=== PATIENT | male | born 2000 | race Caucasian/White ===

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

== ENCOUNTER 2018-05-03 13:55 | Emergency (ER) | payer BC ==
[2018-05-03 14:00] VITALS: RESP 18; TEMP 98.5
[2018-05-03] MEDS ORDERED: GLUCAGON 1 MG/ML VIAL IVP STA (14:12)
[2018-05-03] MEDS ORDERED: DIAZEPAM 5 MG/ML 2 ML INJ IVP STA (14:12)
[2018-05-03] MEDS ORDERED: METOCLOPRAMIDE 5 MG/ML 2 ML VIAL IVP STA (14:12)
[2018-05-03] MEDS ORDERED: NITROGLYCERIN SL TABS 0.4 MG TAB SUBLINGUAL STA (14:22)
--- NOTE | 2018-05-03 14:50 | ED ---
General Adult HPI <Yehuda Duarte - Last Filed: 05/03/18 16:03> - General Source: patient, RN notes reviewed, old records reviewed Mode of arrival: ambulatory Limitations: no limitations <Zi Avila - Last Filed: 05/03/18 19:27> - General Chief complaint: Skin/Abscess/Foreign Body Stated complaint: Foreign Object in throat - History of Present Illness Initial comments: 17-year-old male patient presents in ED for foreign body in throat. Patient states that approximately one hour ago he was eating piece of steak, felt in get stuck after swallowing. Patient states that he can feel it substernally. Patient able to breathe without difficulty. Patient is in no distress. Patient previously had a piece of meat lodged in his throat approximately 4 years ago, required endoscopy to remove a piece of meat. Patient denies all complaints. Patient denies chest pain, shortness of breath, abdominal pain, nausea vomiting diarrhea. Systemic: Pt denies fatigue, myalgia, fever/chills, rash. Pt denies weakness, night sweats, weight loss. Neuro: Pt denies headache, visual disturbances, syncope or pre-syncope. HEENT: Pt denies ocular discharge or irritation, otalgia, rhinorrhea, pharyngitis or notable lymphadenopathy. Cardiopulmonary: Pt denies chest pain, SOB, heart palpitations, dyspnea on exertion. Abdominal/GI: Pt denies abdominal pain, n/v/d. : Pt denies dysuria, burning w/ urination, frequency/urgency. Denies new onset urinary or bowel incontinence. MSK: Pt denies myalgia, loss of strength or function in extremities. (Zi Avila) - Related Data Home Medications Medication Instructions Recorded Confirmed No Known Home Medications 05/03/18 05/03/18 Allergies Allergy/AdvReac Type Severity Reaction Status Date / Time egg Allergy Anaphylaxis Verified 05/03/18 14:09 Sulfa (Sulfonamide Allergy Rash/Hives Verified 05/03/18 14:09 Antibiotics) Review of Systems ROS Other: All systems not noted in ROS Statement are negative. <Yehuda Duarte - Last Filed: 05/03/18 16:03> ROS Other: All systems not noted in ROS Statement are negative. <Zi Avila - Last Filed: 05/03/18 19:27> ROS Statement: Those systems with pertinent positive or pertinent negative responses have been documented in the HPI. Past Medical History Past Medical History: GERD/Reflux History of Any Multi-Drug Resistant Organisms: None Reported Additional Past Surgical History / Comment(s): endoscopy to remove lodged piece of meat from esophagus Past Psychological History: No Psychological Hx Reported Smoking Status: Never smoker Past Alcohol Use History: None Reported Past Drug Use History: None Reported <Zi Avila - Last Filed: 05/03/18 19:27> General Exam <Yehuda Duarte - Last Filed: 05/03/18 16:03> Limitations: no limitations <Zi Avila - Last Filed: 05/03/18 19:27> - General Exam Comments Initial Comments: Constitutional: NAD, AOX3, Pt has pleasant affect. HEENT: NC/AT, trachea midline, neck supple, no lymphadenopathy. Posterior pharynx non erythematous, without exudates. External ears appear normal, without discharge. Mucous membranes moist. Eyes PERRLA, EOM intact. There is no scleral icterus. No pallor noted. Cardiopulmonary: RRR, no murmurs, rubs or gallops, no JVD noted. Lungs CTAB in anterior and posterior gracia. No peripheral edema. Abdominal exam: Abdomen soft and non-distended. Abdomen non-tender to palpation in all 4 quadrants. Bowel sounds active in LLQ. No hepatosplenomegaly. Neuro: CN II-XII grossly intact. (Zi Avila) Course <Yehuda Duarte - Last Filed: 05/03/18 16:03> <Zi Avila - Last Filed: 05/03/18 19:27> Vital Signs 05/03/18 05/03/18 13:57 16:30 Temperature 98.5 F Pulse Rate 90 86 Respiratory 18 18 Rate Blood Pressure 124/80 122/78 O2 Sat by Pulse 99 100 Oximetry - Reevaluation(s) Reevaluation #1: 05/03/18 16:03 PA supervision: I proceeded [id number] evaluation the patient did discuss the situation with him the patient did eat steak around 1 PM today he's unable pass that he has had a prior history of esophageal obstruction. He did fail the initial attempts at medical therapy in the emergency department. I did discuss the case with Dr. Pryor who will come in and see the patient. (Yehuda Duarte) Medical Decision Making <GeraldYehuda - Last Filed: 05/03/18 16:03> <Zi Avila - Last Filed: 05/03/18 19:27> - Medical Decision Making 17-year-old male patient presents in ED with piece of steak lodged in distal esophagus. Patient states that he swallowed a large piece of steak, felt that it did not "go down all the way". Patient had a similar occurrence approximately 4 years ago, requiring endoscopy to remove a piece of meat. Patient has no other complaints. Patient is not in acute distress, patient is breathing easily. Lungs sounds clear to auscultation in anterior and posterior gracia. Patient is unable to swallow liquids. Initial intervention of Sublingual nitro, glucagon , Valium, Reglan was attempted , was unsuccessful. Patient still unable to pass liquids. GI/Endo was consulted. Patient underwent endoscopy to clear esophagus. Patient awake and alert post procedure. Biopsies were taken. Dr. Pryor conducted endoscopy, patient will be referred to his office in 2 weeks. Patient given prescription for omeprazole. Patient to have clear liquids tonight, proceeded that as tolerated. Patient to follow with PCP in one to days. Patient to return to ED if any new signs symptoms develop including pain in neck, difficulty breathing, chest pain, shortness of breath any other symptoms. Case discussed with Dr. Duarte. (Zi Avila) Disposition <Yehuda Duarte - Last Filed: 05/03/18 16:03> Is patient prescribed a controlled substance at d/c from ED?: No Time of Disposition: 19:27 <Zi Avila - Last Filed: 05/03/18 19:27> Clinical Impression: Esophagus, foreign body Disposition: HOME SELF-CARE Condition: Good Instructions: Esophageal Foreign Body (ED) Additional Instructions: Patient to adhere to previously discussed treatment plan and will take medication(s) as directed. Patient to follow up with PCP in 1-2 days. Patient to return to ED if symptoms do not improve. Referrals: None,Stated [Primary Care Provider] - 1-2 days Obduloi Pryor MD [STAFF PHYSICIAN] - 1-2 days
[2018-05-03] MEDS ORDERED: IV FLUID CONTINUATION 1,000 ML IV ONE (17:19)
--- NOTE | 2018-05-03 17:48 | P.CONS ---
History of Present Illness - Reason for Consult Consult date: 05/03/18 Foreign body Requesting physician: Zi Avila - Chief Complaint Food in food pipe - History of Present Illness The patient is a pleasant 17 yo male with no significant medical history who presents to the hospital after eating steak earlier in the day and getting it stuck in his esophagus. Per the patient he has not had any dysphagia recently . He denies any history of GERD. He did have a prior episode of esophageal food impaction 4 years ago requiring emergent EGD. He reports that at that time he was told that the food got caught in the esophagus as it tapered. He states that he followed up with GI after that in the office. He is not on any current medications. He denies nausea, vomiting or change in bowel habits. His complaints are of the sensation of a foreign body in his esophagus and being unable to tolerate his secretions. The patient does have a history of asthma. Review of Systems REVIEW OF SYSTEMS: CONSTITUTIONAL: Denies any fevers, chills, weight change or fatigue. CARDIOVASCULAR: Denies any chest pain, palpitations high or low blood pressures RESPIRATORY: Denies any shortness of breath, hemoptysis or cough. GENITOURINARY: No dysuria or hematuria. MUSCULOSKELETAL: No weakness reported. SKIN: Denies any new rashes or lesions, jaundice or pallor. PSYCHIATRIC: Denies any depression or anxiety. NEUROLOGY: Denies headache, denies any new focal deficits. EARS/NOSE/THROAT: No recent hearing change, congestion, nasal discharge or sore throat. EYES: No pain in eyes, discharge or change in vision. GASTROINTESTINAL: As per HPI. Past Medical History Past Medical History: Asthma, GERD/Reflux History of Any Multi-Drug Resistant Organisms: None Reported Additional Past Surgical History / Comment(s): endoscopy to remove lodged piece of meat from esophagus Past Psychological History: No Psychological Hx Reported Smoking Status: Never smoker Past Alcohol Use History: None Reported Past Drug Use History: None Reported Additional History: Family History: Reveiwed with the patient and not conbributory to current medical presentation. Medications and Allergies Home Medications Medication Instructions Recorded Confirmed Type No Known Home Medications 05/03/18 05/03/18 History Allergies Allergy/AdvReac Type Severity Reaction Status Date / Time egg Allergy Anaphylaxis Verified 05/03/18 14:09 Sulfa (Sulfonamide Allergy Rash/Hives Verified 05/03/18 14:09 Antibiotics) Physical Exam Vitals: Vital Signs Temp Pulse Resp BP Pulse Ox 05/03/18 16:30 86 18 122/78 100 05/03/18 13:57 98.5 F 90 18 124/80 99 Intake and Output 05/03/18 05/03/18 05/03/18 06:59 14:59 22:59 Other: Weight 72.575 kg On physical examination, patient appears comfortable in no apparent distress. HEAD: Normocephalic, atraumatic. EYES: No scleral icterus. No conjunctival injection. MOUTH: No lesions, tongue midline. NECK: Trachea midline, no gross abnormalities. CHEST: Clear to auscultation with no wheezing or rhonchi appreciated. HEART: Regular rate and rhythm. ABDOMEN: Soft, obese. Bowel sounds are positive. No organomegaly. No guarding or rigidity. EXTREMITIES: No pedal edema. SKIN: No rashes, no jaundice. NEUROLOGIC: Alert and oriented x3. No focal deficits. Assessment and Plan (1) Esophagus, foreign body Narrative/Plan: Esophageal food impaction. Prior history of similar presentation 4 years ago, reports he had been asymptomatic since that time until getting steak stuck in his esophagus today. Current Visit: Yes Status: Acute Code(s): T18.108A - UNSP FOREIGN BODY IN ESOPHAGUS CAUSING OTH INJURY, INIT SNOMED Code(s): 62255546 Plan: Supportive care NPO Plan on urgent EGD Case discussed with the patient and his parents at length who agree with the treatment plan, and understand all risks, side effects and benefits of the proposed intervention with all their questions answered to their satisfaction. Further recommendations to follow based on findings of endoscopy Thank you for allowing us to participate in the care of the patent
[2018-05-03] MEDS ORDERED: KETAMINE 10 MG/ML 20 ML VIAL ONE (17:50)
[2018-05-03] MEDS ORDERED: MIDAZOLAM 2 MG/2 ML VIAL ONE (17:50)
[2018-05-03] MEDS ORDERED: SUCCINYLCHOLINE CHLORIDE 100 MG/5 ML SYR IV ONE (17:50)
[2018-05-03] MEDS ORDERED: LIDOCAINE 1% INJ 10MG/ML (20 ML MDV) ONE (17:50)
[2018-05-03] MEDS ORDERED: PROPOFOL 10 MG/ML 20 ML VIAL IV ONE (17:50)
[2018-05-03] MEDS ORDERED: fentaNYL (PF) 50 MCG/ML 2 ML AMP ONE (17:50)
[2018-05-03 19:38] VITALS: BP 114/62; PULSE 78
--- NOTE | 2018-05-06 20:43 | P.PCN ---
Date of Procedure: 05/03/18 Description of Procedure: BRIEF HISTORY: Patient is a 17-year-old, pleasant, male patient with a prior history of dysphagia and food impaction who presents to the hospital with complaints of food lodged in his esophagus after eating steak earlier in the day. The patient reports that since his previous episode of food impaction he has had no difficulty with swallowing in that this came out of the blue with no preceding symptoms. He does report following up after his prior EGD 4 years ago and believes he was on a medication for some time, however is not on any current medication. PROCEDURE PERFORMED: Esophagogastroduodenoscopy with biopsy. PREOPERATIVE DIAGNOSIS: Esophageal foreign body, food impaction. IV sedation per anesthesia. PROCEDURE: After informed consent was obtained, the patient was brought into the endoscopy unit. IV sedation was administered by Anesthesia under continuous monitoring. Initially the Olympus GIF-160 video endoscope was inserted into the mouth. Esophagus intubated without any difficulty and the food bolus was noted in the distal esophagus. Initially pieces of the steak were removed with snare and cold forceps. The food was then able to be successfully advanced into the stomach with gentle pressure. The endoscope was gradually advanced into the stomach and duodenum and carefully examined. The bulb and the second part of the duodenum appeared normal. The scope at this time was withdrawn to the stomach, adequately insufflated with air, and upon careful examination, mucosa of the antrum, body, cardia and the fundus appeared normal with solid food noted. The scope was then withdrawn into the esophagus. The GE junction was located at 39 cm from the incisors. The esophagus appeared normal with no strictures or obstructions seen, however there was some erythema at the site of the food impaction. Biopsies were taken of the mid esophagus to rule out eosinophilic esophagitis. The patient tolerated the procedure well. IMPRESSION: 1. Esophageal food impaction causing obstruction which was treated with removal of some of the food by cold snare and forceps and with the food eventually pushed into the stomach successfully with gentle pressure. 2. Mid esophageal biopsies to rule out eosinophilic esophagitis. RECOMMENDATIONS: The findings of this examination were discussed with the patient and his partner. A prescription for twice daily PPI therapy was given to the patient. He was instructed to take clear liquids for the rest of the day and advance his diet the following day. Patient should follow up in 2 weeks with gastroenterology and was informed that he will need a repeat endoscopy in 6-8 weeks. Await pathology.
== END 2018-05-03 19:52 | disposition home or self-care (01) ==
LOC: EC 13:55
DX: T18.128A Food in esophagus causing other injury, initial encounter (principal); Z91.012 Allergy to eggs; Z88.2 Allergy status to sulfonamides
CPT/HCPCS: 99284 ×2; 96374 ×2; 96375 ×3; 88305; 43239; 43247; J2250; J1610; J2765; J3360; J2001; J3010; J0330; J2704

== ENCOUNTER → 2018-08-21 | Outpatient (CLI) | payer BC ==
--- NOTE | 2018-08-21 15:42 | XR ---
Right knee HISTORY: Pain 3 views of the right knee Bone mineralization, joint spaces and alignment are maintained. No evident joint effusion. IMPRESSION: No fracture or dislocation. Knee MRI may be of benefit.
== END ==
LOC: LABWHC1 11:53
PROVIDERS: ATTEND Family Medicine
DX: M25.561 Pain in right knee (principal); I10 Essential (primary) hypertension; B89 Unspecified parasitic disease
CPT/HCPCS: 36415; 84550; 85652; 86431

== ENCOUNTER 2020-02-10 06:29 | Emergency (ER) | payer BC ==
[2020-02-10 06:40] VITALS: TEMP 98
[2020-02-10] MEDS ORDERED: ONDANSETRON 4 MG/2 ML VIAL IVP STA (07:18)
[2020-02-10] MEDS ORDERED: SODIUM CHLORIDE 0.9% 1,000 ML IV STA (07:18)
--- NOTE | 2020-02-10 07:26 | ED ---
General Adult HPI - General Chief complaint: Nausea/Vomiting/Diarrhea Stated complaint: Dizziness,Nausea Time Seen by Provider: 02/10/20 06:48 Source: patient, RN notes reviewed Mode of arrival: ambulatory Limitations: no limitations - History of Present Illness Initial comments: 19-year-old male with a past medical history of GERD presents to the emergency room for a chief complaint of nausea vomiting. Patient has had nausea and vomiting for the past 3 days. Patient reports that this happens after he eats. He denies diarrhea. He denies any associated abdominal pain. Patient did think he had red tinted urine earlier today and was concerned it could be blood. Patient also has been lightheaded. States he almost passed out at work today but his coworker caught him.Patient has no other complaints at this time including shortness of breath, chest pain, abdominal pain, nausea or vomiting, headache, or visual changes. - Related Data Previous Rx's Medication Instructions Recorded Ondansetron [Zofran ODT] 4 mg PO Q8HR PRN #15 tab 02/10/20 Allergies Allergy/AdvReac Type Severity Reaction Status Date / Time egg Allergy Anaphylaxis Verified 02/10/20 06:40 Sulfa (Sulfonamide Allergy Rash/Hives Verified 02/10/20 06:40 Antibiotics) Review of Systems ROS Statement: Those systems with pertinent positive or pertinent negative responses have been documented in the HPI. ROS Other: All systems not noted in ROS Statement are negative. Past Medical History Past Medical History: GERD/Reflux History of Any Multi-Drug Resistant Organisms: None Reported Additional Past Surgical History / Comment(s): endoscopy to remove lodged piece of meat from esophagus Past Psychological History: No Psychological Hx Reported Smoking Status: Never smoker Past Alcohol Use History: None Reported Past Drug Use History: None Reported General Exam Limitations: no limitations General appearance: alert, in no apparent distress Head exam: Present: atraumatic, normocephalic, normal inspection Eye exam: Present: normal appearance, PERRL, EOMI. Absent: scleral icterus, conjunctival injection, periorbital swelling ENT exam: Present: normal exam, mucous membranes moist Neck exam: Present: normal inspection, full ROM. Absent: tenderness, meningis mus, lymphadenopathy Respiratory exam: Present: normal lung sounds bilaterally. Absent: respiratory distress, wheezes, rales, rhonchi, stridor Cardiovascular Exam: Present: regular rate, normal rhythm, normal heart sounds. Absent: systolic murmur, diastolic murmur, rubs, gallop, clicks GI/Abdominal exam: Present: soft, normal bowel sounds. Absent: distended, tenderness, guarding, rebound, rigid Back exam: Absent: CVA tenderness (R), CVA tenderness (L) Course Vital Signs 02/10/20 02/10/20 06:37 08:00 Temperature 98 F Pulse Rate 68 Respiratory 18 18 Rate Blood Pressure 107/69 O2 Sat by Pulse 100 Oximetry Medical Decision Making - Lab Data Result diagrams: 02/10/20 07:15 02/10/20 07:15 Lab Results 02/10/20 02/10/20 02/10/20 Range/Units 07:15 07:15 07:15 WBC 8.2 (3.8-10.6) k/uL RBC 5.01 (4.30-5.90) m/uL Hgb 15.3 (13.0-17.5) gm/dL Hct 45.2 (39.0-53.0) % MCV 90.1 (80.0-100.0) fL MCH 30.5 (25.0-35.0) pg MCHC 33.8 (31.0-37.0) g/dL RDW 12.4 (11.5-15.5) % Plt Count 254 (150-450) k/uL Neutrophils % 61 % Lymphocytes % 28 % Monocytes % 8 % Eosinophils % 1 % Basophils % 1 % Neutrophils # 5.0 (1.3-7.7) k/uL Lymphocytes # 2.3 (1.0-4.8) k/uL Monocytes # 0.7 (0-1.0) k/uL Eosinophils # 0.1 (0-0.7) k/uL Basophils # 0.1 (0-0.2) k/uL Sodium 139 (137-145) mmol/L Potassium 4.0 (3.5-5.1) mmol/L Chloride 103 (98-107) mmol/L Carbon Dioxide 27 (22-30) mmol/L Anion Gap 9 mmol/L BUN 10 (9-20) mg/dL Creatinine 0.92 (0.66-1.25) mg/dL Est GFR (CKD-EPI)AfAm >90 (>60 ml/min/1.73 sqM) Est GFR (CKD-EPI)NonAf >90 (>60 ml/min/1.73 sqM) Glucose 92 (74-99) mg/dL Calcium 9.7 (8.4-10.2) mg/dL Total Bilirubin 1.1 (0.2-1.3) mg/dL AST 24 (17-59) U/L ALT 13 (4-49) U/L Alkaline Phosphatase 75 (38-126) U/L Total Protein 7.5 (6.3-8.2) g/dL Albumin 4.8 (3.5-5.0) g/dL Amylase 63 (30-110) U/L Lipase 55 (23-300) U/L Urine Color Yellow Urine Appearance Clear (Clear) Urine pH 6.0 (5.0-8.0) Ur Specific [place] 1.029 (1.001-1.035) Urine Protein 1+ H (Negative) Urine Glucose (UA) Negative (Negative) Urine Ketones Negative (Negative) Urine Blood Negative (Negative) Urine Nitrite Negative (Negative) Urine Bilirubin Negative (Negative) Urine Urobilinogen 3.0 (<2.0) mg/dL Ur Leukocyte Esterase Negative (Negative) Urine RBC <1 (0-5) /hpf Urine WBC 1 (0-5) /hpf Urine Mucus Many H (None) /hpf Disposition Clinical Impression: Nausea & vomiting Disposition: HOME SELF-CARE Condition: Good Instructions (If sedation given, give patient instructions): Acute Nausea and Vomiting (ED) Additional Instructions: Please take Zofran as needed for nausea. Drink plenty of fluids. Follow-up with primary care in 1-2 days. Return to the emergency room for any worsening symptoms. Prescriptions: Ondansetron [Zofran ODT] 4 mg PO Q8HR PRN #15 tab PRN Reason: Nausea Is patient prescribed a controlled substance at d/c from ED?: No Referrals: Brandon Jeffries MD [Primary Care Provider] - 1-2 days Time of Disposition: 08:18
[2020-02-10 07:27] LABS: Basophils # (A) 0.1 k/uL (0-0.2); Basophils % (A) 1 %; Eosinophils # (A) 0.1 k/uL (0-0.7); Eosinophils % (A) 1 %; HCT 45.2 % (39.0-53.0); HGB 15.3 gm/dL (13.0-17.5); Lymphocytes # (A) 2.3 k/uL (1.0-4.8); Lymphocytes % (A) 28 %; MCH 30.5 pg (25.0-35.0); MCHC 33.8 g/dL (31.0-37.0); MCV 90.1 fL (80.0-100.0); Mean Platelet Volume 8.1; Monocytes # (A) 0.7 k/uL (0-1.0); Monocytes % (A) 8 %; Neutrophils % (A) 61 %; Platelet Count 254 k/uL (150-450); RBC 5.01 m/uL (4.30-5.90); RDW 12.4 % (11.5-15.5); WBC 8.2 k/uL (3.8-10.6)
[2020-02-10 07:37] LABS: ALT 13 U/L (4-49); AST 24 U/L (17-59); African American GFR (CKD) >90 (>60 ml/min/1.73 sqM); Albumin 4.8 g/dL (3.5-5.0); Alkaline Phosphatase 75 U/L (38-126); Amylase 63 U/L (30-110); Anion Gap 9 mmol/L; Blood Urea Nitrogen 10 mg/dL (9-20); Calcium 9.7 mg/dL (8.4-10.2); Carbon Dioxide 27 mmol/L (22-30); Chloride 103 mmol/L (98-107); Glucose 92 mg/dL (74-99); Non-African American GFR(CKD) >90 (>60 ml/min/1.73 sqM); Sodium 139 mmol/L (137-145); Total Bilirubin 1.1 mg/dL (0.2-1.3); Total Protein 7.5 g/dL (6.3-8.2)
[2020-02-10 07:39] LABS: Appearance,Urine Clear (Clear); Bilirubin,Urine Negative (Negative); Blood,Urine Negative (Negative); Color,Urine Yellow; Glucose,Urine (UA) Negative (Negative); Ketones,Urine Negative (Negative); Leukocyte Esterase,Urine Negative (Negative); Mucus,Urine Many /hpf; Nitrite,Urine Negative (Negative); Protein,Urine 1+ (Negative); RBC,Urine <1 /hpf (0-5); Specific Gravity,Urine 1.029 (1.001-1.035); WBC,Urine 1 /hpf (0-5)
--- NOTE | 2020-02-10 07:58 | XR ---
EXAMINATION TYPE: XR chest 2V DATE OF EXAM: 02/10/2020 COMPARISON: 09/25/2017 HISTORY: 19-year-old male with dizziness, syncope TECHNIQUE: PA and lateral views FINDINGS: The cardiomediastinal silhouette, aorta, and pulmonary vasculature are within normal limits. Lungs an d pleural spaces are clear. IMPRESSION: No acute cardiopulmonary process.
[2020-02-10 08:58] VITALS: BP 109/69; PULSE 65; RESP 16
== END 2020-02-10 09:10 | disposition home or self-care (01) ==
LOC: EC 06:29
DX: R11.2 Nausea with vomiting, unspecified (principal); R42 Dizziness and giddiness; Z88.2 Allergy status to sulfonamides; Z91.012 Allergy to eggs
CPT/HCPCS: 36415; 93005; 80053; 82150; 83690; 85025; 81001; 71046; 99284; 96374; 96361; J2405

== ENCOUNTER → 2020-09-14 | Outpatient (CLI) | payer BC ==
[2020-09-14 23:23] LABS: HCT 47.1 % (39.6-50.0); HGB 15.9 g/dL (13.0-17.0); MCH 31.2 pg (27.0-32.0); MCHC 33.8 g/dL (32.0-37.0); MCV 92.5 fL (80.0-97.0); Mean Platelet Volume 11.2 fL (9.5-12.2); Platelet Count 251 X 10*3/uL (140-440); RBC 5.09 X 10*6/uL (4.40-5.60); RDW 11.7 % (11.5-14.5); WBC 6.38 X 10*3/uL (4.50-10.00)
[2020-09-15 00:33] LABS: African American GFR (CKD) 124.1 (60.0-200.0); Albumin 4.7 g/dL (3.80-4.90); Albumin/Globulin Ratio 2.14 (1.60-3.17); Anion Gap 7.3 mmol/L (4.00-12.00); Calcium 9.7 mg/dL (8.7-10.3); Carbon Dioxide 27.7 mmol/L (21.6-31.8); Chol/HDL Ratio 3.33; Globulin 2.2 g/dL (1.6-3.3); LDL Cholesterol,Calculated 64.6 mg/dL (0.0-131.0); Non-African American GFR(CKD) 107.1 (60.0-200.0); Potassium 4.1 mmol/L (3.5-5.5); Total Bilirubin 0.8 mg/dL (0.3-1.2); Total Protein 6.9 g/dL (6.2-8.2); VLDL Calculation 35.4 mg/dL (5.00-40.00)
[2020-09-15 00:42] LABS: T4, Free (Free Thyroxine) 1.2 ng/dL (0.80-1.80)
== END | disposition home or self-care (01) ==
LOC: LABWHC1 15:11
PROVIDERS: ATTEND Family Medicine
DX: N39.0 Urinary tract infection, site not specified (principal); I10 Essential (primary) hypertension; Z79.899 Other long term (current) drug therapy
CPT/HCPCS: 36415; 80053; 80061; 83036; 84439; 84443; 85027

== ENCOUNTER 2022-01-10 20:00 | Emergency (ER) | payer BC ==
[2022-01-10 20:07] VITALS: BP 128/86; PULSE 80; RESP 18; TEMP 98.3
--- NOTE | 2022-01-10 20:15 | ED ---
Head Injury HPI - General Chief complaint: Head Injury Stated complaint: Hit head on dock Time Seen by Provider: 01/10/22 20:11 Source: patient, family Mode of arrival: ambulatory Limitations: no limitations - History of Present Illness Initial comments: This is a pleasant 21-year-old male who presents after suffering a head injury about one hour prior to arrival. [place] Apparently he was wrestling with his sister and ended up striking his frontal scalp with his sister. He then fell and hit the back of his head. Patient apparently lost consciousness for an unknown amount of time. He has had a few episodes of vomiting since this head injury. Also complaining of headache to the occipital area as well as some pain in the neck. No other injuries. Patient is able to ambulate. The pain a moderate intensity. Denies any double vision. No numbness or tingling. No slurred speech. No focal weakness. Patient is not on blood thinners. Patient did have some noted confusion after the injury. Occurred about one hour prior to arrival no fever or chills, no changes in vision or hearing, no sore throat or difficulty with speech, no chest pain or shortness of breath, no abdominal pain, no nausea or vomiting, no changes in urination or bowel movements, no numbness or tingling, no extremity pain, no skin rashes or lesions. Past medical, surgical, social, and family history reviewed. Complaint: head injury - Related Data Previous Rx's Medication Instructions Recorded Ondansetron [Zofran ODT] 4 mg PO Q8HR PRN #15 tab 02/10/20 Allergies/Adverse reactions: Allergies Allergy/AdvReac Type Severity Reaction Status Date / Time egg Allergy Anaphylaxis Verified 01/10/22 20:07 Sulfa (Sulfonamide Allergy Rash/Hives Verified 01/10/22 20:07 Antibiotics) Review of Systems ROS Statement: Those systems with pertinent positive or pertinent negative responses have been documented in the HPI. ROS Other: All systems not noted in ROS Statement are negative. Past Medical History Past Medical History: GERD/Reflux History of Any Multi-Drug Resistant Organisms: None Reported Additional Past Surgical History / Comment(s): endoscopy to remove lodged piece of meat from esophagus Past Psychological History: No Psychological Hx Reported Smoking Status: Never smoker Past Alcohol Use History: None Reported Past Drug Use History: None Reported General Exam - General Exam Comments Initial Comments: 21-year-old male in moderate distress secondary to head and neck injury. Cranial nerves II through XII are intact. Cerebellar testing is essentially normal as tested in triage. Limitations: no limitations General appearance: alert, in distress Head exam: Present: atraumatic, normocephalic, normal inspection Eye exam: Present: normal appearance, PERRL, EOMI. Absent: scleral icterus, conjunctival injection, periorbital swelling Pupils: Present: normal accommodation ENT exam: Present: normal exam, normal oropharynx, mucous membranes moist, TM's normal bilaterally, normal external ear exam. Absent: mucous membranes dry Neck exam: Present: normal inspection, tenderness (Patient has tenderness both in the cervical paraspinal area and midline. No crepitus. No break in skin integrity), full ROM. Absent: meningismus, lymphadenopathy Respiratory exam: Present: normal lung sounds bilaterally. Absent: respiratory distress, wheezes, rales, rhonchi, stridor, chest wall tenderness, accessory muscle use Cardiovascular Exam: Present: regular rate, normal rhythm, normal heart sounds. Absent: systolic murmur, diastolic murmur, rubs, gallop, clicks GI/Abdominal exam: Present: soft, normal bowel sounds. Absent: distended, tenderness, guarding, rebound, rigid Extremities exam: Present: normal inspection, full ROM, normal capillary refill. Absent: tenderness, pedal edema, joint swelling, calf tenderness Back exam: Present: normal inspection Neurological exam: Present: alert, oriented X3, CN II-XII intact Expanded Patient oriented to: Present: person, place, time Speech: Present: fluid speech Cranial nerves: EOM's Intact: Normal, Gag Reflex: Normal, Tongue Deviation: Normal, Nystagmus: Normal, Facial Sensation: Normal, Facial Palsy with Forehead Movement: Normal, Facial Palsy without Forehead Movement: Normal Cerebellar function: Finger to Nose: Normal, Heel to Lal: Normal, Romberg: Normal Upper motor neuron: Zoran Neglect: Normal, Pronator Drift: Normal, Babinski Sign: Normal, Sensory Extinction: Normal Sensory exam: Upper Extremity Light Touch: Normal, Lower Extremity Light Touch: Normal Motor strength exam: RUE: 5, LUE: 5, RLE: 5, LLE: 5 Eye Response: (4) open spontaneously Motor Response: (6) obeys commands Verbal Response: (5) oriented (15) Psychiatric exam: Present: normal affect, normal mood Skin exam: Present: warm, dry, intact, normal color. Absent: rash Course Vital Signs 01/10/22 20:05 Temperature 98.3 F Pulse Rate 80 Respiratory 18 Rate Blood Pressure 128/86 O2 Sat by Pulse 98 Oximetry - Reevaluation(s) Reevaluation #1: 01/10/22 21:35 Medical record is reviewed Symptoms are improved here in the emergency department Patient is informed of results and questions answered Patient in no distress Patient alert and oriented 4, cranial nerves II through XII intact. No neurologic deficits. Medical Decision Making - Medical Decision Making We'll obtain imaging due to headache, loss of consciousness, post injury confusion, and 2 vomiting episodes. Patient does have some midline tenderness of cervical spine area. We'll obtain imaging there as well. Did advise the nurse to apply a cervical collar. - Radiology Data Radiology results: report reviewed, image reviewed Disposition Clinical Impression: Concussion with loss of consciousness <= 30 min, Cervical strain, acute Disposition: HOME SELF-CARE Condition: Good Instructions (If sedation given, give patient instructions): Cervical Strain (ED), Concussion (ED) Additional Instructions: Use [id number] Tylenol as directed on the bottle for general pain. No strenuous activity or exercise until follow-up with the regular physician with clearance. Review the head injury instructions as discussed. Make sure you're with somebody for the next 24 hours. Follow-up with your regular physician as directed. Return to the ER immediately if any symptoms worsen, new symptoms arise, or any other problems develop. Is patient prescribed a controlled substance at d/c from ED?: No Referrals: Brandon Jeffries MD [Primary Care Provider] - 01/12/22 Time of Disposition: 21:36
--- NOTE | 2022-01-10 20:45 | CT ---
EXAMINATION TYPE: CT brain cspine wo con CT DLP: 1297.1 mGycm, Automated exposure control for dose reduction was used. DATE OF EXAM: 01/10/2022 8:34 PM COMPARISON: None. CLINICAL INDICATION:Male, 21 years old with history of Head injury, neck pain; pain after head injury TECHNIQUE: Brain: Multiple axial CT images of the brain were obtained without IV contrast. Cspine: Axial CT images from the skull base to the inferior aspect of T2 we obtained without intraven ous contrast. Coronal and sagittal reformatted images were also reviewed. FINDINGS: Brain: Extra-axial spaces: No abnormal extra-axial fluid collections. Ventricular system: Within normal limits Cerebral parenchyma: No acute intraparenchymal hemorrhage or mass effect. The mahmood-white junction is well differentiated. Cerebellum: Unremarkable. Mass effect: No evidence of midline shift. Intracranial vasculature: unremarkable Soft tissues: Normal. Calvarium/osseous structures: No depressed skull fracture. Paranasal sinuses and mastoid air cells: Clear. Visualized orbits: Orbital contents are intact. Cervical spine: Fracture: None. Osseous structures: Unremarkable Vertebral alignment: Within normal limits. Spinal canal/Neural Foramina: No evidence of significant spinal canal narrowing. No evidence for sign ificant neural foraminal stenosis. Neck soft tissues: Prevertebral soft tissues are within normal limits. Other: The airway is patent. The lung apices are clear. IMPRESSION: 1. No acute intracranial process. 2. No evidence of cervical spine fracture.
== END 2022-01-10 21:45 | disposition home or self-care (01) ==
LOC: EC 20:00
DX: S06.0X1A Concussion with loss of consciousness of 30 minutes or less, initial encounter (principal); S16.1XXA Strain of muscle, fascia and tendon at neck level, initial encounter; K21.9 Gastro-esophageal reflux disease without esophagitis; Z91.012 Allergy to eggs; Z88.2 Allergy status to sulfonamides; W03.XXXA Other fall on same level due to collision with another person, initial encounter; Y93.72 Activity, wrestling
CPT/HCPCS: 70450; 72125; 99284